=== PATIENT | male | born 1965 | race Caucasian/White ===

== ENCOUNTER 2018-07-24 17:20 | Emergency (ER) | payer BC, SELFPAY ==
[2018-07-24 17:21] VITALS: BP 170/105; PULSE 100; RESP 16; TEMP 36.2; O2SAT 98; BMI 47.2
--- NOTE | 2018-07-24 17:37 | ED.VISSUMM ---
- ER Visit Summary Date of Service: 07/24/18 Chief Complaint: Cellulitis History of Present Illness: The patient is a 53 M who thinks he pulled something in his right arm a week and a half ago when he was lifting. He had off and on pain and irritation just proximal to the right elbow. Today started noticing the area to be red and more swollen. He has not had fever or chills. He is right-hand dominant. Physical Examination: Vital signs significant for blood pressure of 170/105, otherwise unremarkable. Patient standing at bedside in no acute distress. He is nontoxic appearing. Heart is regular rate and rhythm. Lung sounds clear. Right upper extremity examination reveals a 9 cm diameter area of mild erythema on the distal right upper arm with mild edema. He has full range of motion of the elbow without difficulty. There is no fluctuance. Test Results: [] Emergency Department Course and Treatment: I did do a bedside ultrasound that shows no evidence of deep fluid collection. I advised the patient I think he likely did sprain his elbow that has been irritated, but now has an overlying early skin infection. He will be treated with Bactrim and Keflex. Treatment Plan: [] Disposition: Discharge Impression: Cellulitis right upper extremity This note was generated with [employer] dictation software. It may contain incorrect words, spelling, and punctuation that were not noted in review of the chart prior to signing ED Disposition - Plan for ED Patient: Chief Complaint: Cellulitis Referrals: Jesus Paul MD [Primary Care Provider] -
--- NOTE | 2018-07-24 17:38 | ED.DEP ---
ED Disposition - Plan for ED Patient: Disposition: Home or Assisted Living Chief Complaint: Cellulitis Instructions: ED Staph Infec Abx Tx Only Prescriptions: Cephalexin [Keflex] 500 mg PO Q6 #40 capsule Smz/Tmp Ds [Bactrim Ds] 1 tablet PO BID #20 tablet Referrals: Jesus Paul MD [Primary Care Provider] - 1 Week
[2018-07-24] MEDS: Cephalexin 250 MG Capsule 500 MG PO (18:00)
[2018-07-24] MEDS: Smz/Tmp Ds Tablet 1 TABLET PO (18:00)
== END 2018-07-24 18:04 | disposition home or self-care (01) ==
LOC: ED 17:53
PROVIDERS: Emergency Provider Emergency Medicine; Family Provider Family Medicine; PCP Family Medicine
DX: L03.113 Cellulitis of right upper limb (principal)
CPT/HCPCS: 99283

== ENCOUNTER 2019-03-11 17:10 | Emergency (ER) | payer BC, SELFPAY ==
[2019-03-11 17:12] VITALS: BP 157/85; PULSE 102; RESP 16; TEMP 36.4; O2SAT 95; BMI 43.4
--- NOTE | 2019-03-11 17:36 | ED.VISSUMM ---
- ER Visit Summary Date of Service: 03/11/19 Chief Complaint: Right ankle pain History of Present Illness: The patient is a 53 M who presents with right ankle pain. Started yesterday. He just got back from vacation and noticed this pain. He denies any injuries while on vacation. It is on the lateral part of his ankle and radiates down into the foot. He has no history of gout but is concerned it could be this. He tried ice and ibuprofen without any relief. Physical Examination: Vital signs reviewed. Right ankle exam reveals diffuse tenderness. There is no significant swelling. He has full but painful range of motion. No pain with small arc range of motion. No skin changes. He has a 2+ DP pulse Test Results: None performed Emergency Department Course and Treatment: The patient did not want any x-rays. He believes it is gout. I told him the only definitive way to diagnose that would be an aspiration of the joint. He did not want to do this. He does not want any testing. I will give him colchicine and Moriah here. Moriah and prednisone for home. He will call his doctor for follow-up if this persists Treatment Plan: [] Disposition: Discharge Impression: Right ankle pain This note was generated with [employer] dictation software. It may contain incorrect words, spelling, and punctuation that were not noted in review of the chart prior to signing ED Disposition - Plan for ED Patient: Referrals: Jesus Paul MD [Primary Care Provider] -
--- NOTE | 2019-03-11 17:38 | ED.DEP ---
ED Disposition - Plan for ED Patient: Disposition: Home or Assisted Living Instructions: ED Arthritis Gout Prescriptions: Hydrocodone Bitart/Apap 5-325 [[place] 5MG-325MG] 1 tab PO Q6H PRN PRN 3 Days #10 tab PRN Reason: Pain Prednisone [Deltasone] 40 mg PO DAILY #10 tab Referrals: Jesus Paul MD [Primary Care Provider] -
--- NOTE | 2019-03-11 17:39 | DCINST.ED_ITS ---
ED Disposition - Plan for ED Patient: Disposition: Home or Assisted Living Instructions: ED Arthritis Gout Prescriptions: Hydrocodone Bitart/Apap 5-325 [[place] 5MG-325MG] 1 tab PO Q6H PRN PRN 3 Days #10 tab PRN Reason: Pain Prednisone [Deltasone] 40 mg PO DAILY #10 tab Referrals: eJsus Paul MD [Primary Care Provider] -
[2019-03-11] MEDS: HYDROcodone Bitartrate/Apap 5/325 Tablet PO (17:47)
[2019-03-11 17:53] VITALS: RESP 18
== END 2019-03-11 17:56 | disposition home or self-care (01) ==
LOC: ED 17:44
PROVIDERS: Emergency Provider Emergency Medicine; Family Provider Family Medicine; PCP Family Medicine
DX: M25.571 Pain in right ankle and joints of right foot (principal)
CPT/HCPCS: 99283

== ENCOUNTER → 2024-01-13 | Outpatient (CLI) | payer BC, SELFPAY ==
[2024-01-13 12:22] LABS: Absolute Lymphocyte Count 2.23 X10^3/uL (0.83-4.51); Absolute Neutrophil Count 4.5 X10^3/uL (2.0-7.7); Basophil# 0.08 X10^3/uL; Eosinophil# 0.19 X10^3/uL; Eosinophils% 2.4 % (0-5); Hematocrit 43.7 % (40-54); Hemoglobin 14.1 g/dL (13.0-16.5); Lymphocyte # 2.23 X10^3/ul (0.83-4.51); Lymphocyte % 28.1 % (19-41); Mean Corp Hgb Conc 32.3 g/dL (32-36); Mean Corpuscular Hgb 28.4 pg (27.0-32.0); Mean Corpuscular Volume 87.9 fL (80-94); Mean Platelet Vol. 11.3 fl (6.2-12.0); Monocyte# 0.88 X10^3/uL; Monocyte% 11.1 % (0-10); NRBC Flagged by Analyzer 0 % (0-5); Neutrophil # 4.53 X10^3/uL (2.7-7.7); Neutrophil % 56.9 % (47-70); Platelet Count 256 K/mm3 (150-450); RBC Distribution Width CV 14.1 % (11.6-14.6); Red Blood Count 4.97 M/mm3 (4.6-6.2)
[2024-01-13 12:39] LABS: Vitamin B12 531 pg/mL (211-911); Vitamin D,25 Hydroxy 32.6 ng/mL
[2024-01-13 12:48] LABS: ALB/GLOB Ratio 0.9 RATIO (0.9-2.4); AST(SGOT) 24 U/L (15-37); Alanine Aminotransfer ALT/SGPT 26 U/L (16-61); Albumin, Serum 3.5 g/dL (3.2-5.0); Alkaline Phosphatase 78 U/L (45-117); Anion Gap 9 (5-15); BUN 14 mg/dL (7-18); BUN/Creat Ratio 14.5 RATIO (10-20); Calcium,Total 9.4 mg/dL (8.5-10.1); Chloride 108 mmol/L (98-107); Cholesterol 231 mg/dL (200); Creatinine, Serum 0.96 mg/dL (0.70-1.30); EST Glomerular Filtration Rate 85 mL/min (>60); Est Glom Filt Rate - Afr Amer 103 mL/min (>60); Globulin 4.1 g/dL (2.2-4.2); Glucose 100 mg/dL (74-106); High Density Lipoprotein 37 mg/dL; Potassium 4.2 mmol/L (3.5-5.1); Protein, Total 7.6 g/dL (6.4-8.2); Sodium Level 140 mmol/L (136-145); Triglycerides 237 mg/dL; Very Low Density Lipoprotein 47 mg/dL (5-40)
== END | disposition home or self-care (01) ==
LOC: BIMLAB 09:48
PROVIDERS: PCP Family Medicine; Referring Provider Family Medicine; Visit Provider Family Medicine
DX: Z00.00 Encounter for general adult medical examination without abnormal findings (principal); M10.9 Gout, unspecified
CPT/HCPCS: 36415; 80053; 80061; 82306; 82607; 84153; 84403; 84443; 84550; 85025; G0103

== ENCOUNTER → 2024-03-30 | Outpatient (CLI) | payer BC, SELFPAY ==
--- NOTE | 2024-03-31 03:13 | CPS ---
Patient ordered PSG study, however emergency split procedure preformed. AHI greater than 40 after 2 hours of sleep time therefore PAP therapy added. Patient also had more then 6 hours of total sleep time.
== END | disposition home or self-care (01) ==
LOC: SL 20:12
PROVIDERS: PCP Family Medicine; Visit Provider Physician Assistant
DX: G47.30 Sleep apnea, unspecified (principal)
CPT/HCPCS: 95810; 95811

== ENCOUNTER → 2024-04-26 | Outpatient (CLI) | payer BC, SELFPAY | END | disposition home or self-care (01) | LOC: SL 13:27 | PROVIDERS: PCP Family Medicine; Referring Provider Nurse Practitioner; Visit Provider Nurse Practitioner | DX: R69 Illness, unspecified (principal) ==